=== PATIENT | male | born 1960 | race Caucasian/White ===

== ENCOUNTER 2016-09-09 15:10 | Inpatient (IN) | payer BC ==
[~2016-09-09] VITALS: Ht 180.3 cm; Wt 106.8 kg
--- NOTE | ~2016-09-09 | HEMODYNAMI ---
PATIENT:SHEY MOISE JR MEDICAL RECORD: [id number] : 56 LOCATION:[facility] D.[address] [place] CL[facility]ICT# [id number] ADMISSION DATE: 09/09/16 Generatedon:09/10/20169:18 Patient name: SHEY MOISE Patient #: [id number] : 1960 Date of study: 09/10/2016 Page: Of Hemodynamic Procedure Report Patient Data Patient Demographics Procedure consent was obtained First Name: SHEY Gender: Male Last Name: SUMA Suffix: Jr Gil Initial: Aldo : 1960 Patient #: [id number] Age: 56 year(s) Race: Unknown SSN: [id number] Additional ID: [id number] Contact details Address: [address] [place] [address] [facility] State: [place] City: [place] Zip code: [address] Past Medical History Allergies: No known allergies Admission Admission Data Admission Date: 09/09/2016 Admission Time: 17:41 Arrival Date: 09/03/2016 Arrival Time: 0:00 Admit Source: Other Room #: D.2119 Weight (lbs.): 229.28 Weight (kg.): 104 Lab Results Lab Result Date: 09/10/2016 Lab Result Time: 0:00 Biochemistry Name Units Result Min Max BUN mg/dl 11 --(-*--)-- 7 18 Creatinine mg/dl 0.9 --(-*--)-- 0.6 1.3 CBC Name Units Result Min Max Hemoglobin g/dl 46.3 --(----)-* 13.5 17.5 Procedure Procedure Types Cath Procedure Diagnostic Procedure [facility] w/Coronaries PCI Procedure Coronary Stent Initial Miscellaneous Procedures Moderate Sedation up to 15 minutes Procedure Description Procedure Date Procedure Date: 09/10/2016 Procedure Start Time: 8:51 Procedure End Time: 9:13 Procedure Staff Name Function Mal Maki MD Performing Physician Brandy De La Rosa RT Scrub Emily Mujica RN Nurse Cherri Raza RT Monitor Procedure Data Cath Procedure Fluoroscopy Diagnostic fluoroscopy Total fluoroscopy Time: 8.8 time: 8.8 min min Diagnostic fluoroscopy Total fluoroscopy dose: 876 dose: 876 mGy mGy Contrast Material Contrast Material Type Amount (ml) Isovue 300 117 Entry Location Entry Primary Successful Side Size Upsize Upsize Entry Closure Succes sful Closure Location (Fr) 1 (Fr) 2 (Fr) Remarks Device Remarks Femoral Right 5 Fr 7 Fr Exoseal artery Short Estimated blood loss: 10 ml Diagnostic catheters Device Type Used For End Catheter Placement Cordis 5Fr Pigtail LV Angiography Catheter (MP) Cordis 5Fr JL 4.0 Left Coronary Catheter (MP) Angiography Cordis 5Fr 3DRC Catheter Procedure (MP) Procedure Complications No complications Procedure Medications Medication Administration Route Dosage Oxygen NC 2 l/min Lidocaine 2% added to field 20 Heparin Flush Bag added to field 2 bags (1000units/500ml NS) 0.9% NaCl I.V. 100 ml/hr Benadryl I.V. 50 mg Versed I.V. 1 mg Fentanyl I.V. 50 mcg Versed I.V. 1 mg Fentanyl I.V. 50 mcg Versed I.V. 1 mg Fentanyl I.V. 50 mcg Versed I.V. 1 mg Fentanyl I.V. 50 mcg Heparin Bolus I.V. 7000 units Integrilin (Bolus I.V. 9.5 ml 2mg/ml) Versed I.V. 1 mg Nitroglycerin IC/IA I.C. 200 mcg Nitroglycerin IC/IA I.C. 200 mcg Fentanyl I.V. 50 mcg Plavix P.O. 75 mg Hemodynamics Rest HGB: 46.3 (g/dl) Heart Rate: 64 (bpm) Snapshots Pre Cath Intra NCS Post Cath Vital Signs Time Heart Resp SPO2 NIBP (mmHg) Rhythm Pain Sedation Rate (ipm) (%) Status Level (bpm) 8:33:21 65 17 100 140/81(108) NSR 0 (11) 10(A) , No pain 8:37:50 64 14 99 132/85(104) NSR 0 (11) 10(A) , No pain 8:42:12 69 19 95 139/85(113) NSR 0 (11) 10(A) , No pain 8:46:38 66 17 94 130/81(117) NSR 0 (11) 10(A) , No pain 8:51:02 67 17 94 130/76(104) NSR 0 (11) 9(A) , No pain 8:55:22 72 17 94 125/71(98) NSR 0 (11) 9(A) , No pain 8:59:41 71 17 94 124/79(95) NSR 0 (11) 9(A) , No pain 9:03:59 78 15 94 133/84(106) NSR 0 (11) 9(A) , No pain 9:08:21 80 17 95 139/85(116) NSR 0 (11) 9(A) , No pain 9:12:49 77 17 93 125/74(101) NSR 0 (11) 9(A) , No pain 9:17:23 73 17 95 132/81(101) NSR 0 (11) 10(A) , No pain Medications Time Medication Route Dose Verified Delivered Reason Not es Effectiveness by by 8:33:18 Oxygen NC 2 l/min Malghassan Diaz used for Shanthi Mujica RN procedure 8:33:25 Lidocaine 2% added 20ml vial Mal Resendez for local to Shanthi Maki MD anesthetic field 8:33:31 Heparin Flush added 2 bags Mal Resendez used for Bag to Shanthi Maki MD procedure (1000units/500ml field NS) 8:33:40 0.9% NaCl I.V. 100 ml/hr Mal Diaz Per physician Shanthi Mujica RN 8:33:52 Benadryl I.V. 50 mg Mal Diaz used for giv en Shanthi Mujica RN procedure after iv start. could not be given on floor due to non patent iv 8:38:41 Versed I.V. 1 mg Mal Talleyie for sedation Shanthi Mujica RN 8:38:48 Fentanyl I.V. 50 mcg Mal Talleyie for sedation Shanthi Mujica RN 8:43:56 Versed I.V. 1 mg Mal Buffie for sedation Shanthi Mujica RN 8:43:59 Fentanyl I.V. 50 mcg Mal Talleyie for sedation Shanthi Mujica RN 8:51:01 Versed I.V. 1 mg Mal Talleyie for sedation Shanthi Mujica RN 8:51:06 Fentanyl I.V. 50 mcg Mal Buffie for sedation Shanthi Mujica RN 8:54:58 Versed I.V. 1 mg Mal Diaz for sedation Shanthi Mujica RN 8:55:02 Fentanyl I.V. 50 mcg Mal Diaz for sedation Shanthi Mujica RN 8:57:10 Heparin Bolus I.V. 7000units Mal Diaz for colt ified Shanthi Mujica RN anticoagulation with dr maki 8:59:27 Integrilin I.V. 9.5 ml Mal Diaz for was dwayne (Bolus 2mg/ml) Shanthi Mujica RN antiplatelet 0.5 ml therapy from vial 9:07:11 Versed I.V. 1 mg Mal Diaz for sedation Shanthi Mujica RN 9:07:19 Fentanyl I.V. 50 mcg Mal Diaz for sedation Shanthi Mujica RN 9:08:44 Nitroglycerin I.C. 200 mcg Mal Resendez for IC/IA Shanthi Maki MD vasodilation 9:09:37 Nitroglycerin I.C. 200 mcg Mal Resendez for IC/IA Shanthi Mkai MD vasodilation 9:15:54 Plavix P.O. 75 mg Mal Diaz for Shanthi Mujica RN antiplatelet therapy Procedure Log Time Note 8:05:21 Arrival Date: 09/03/2016 12:00:00 AM 8:06:01 Lab Result : BUN 11 mg/dl 8:06:01 Lab Result : Hemoglobin 46.3 g/dl 8:06:01 Lab Result : Creatinine 0.9 mg/dl 8:06:10 Diagnostic Cath Status : Elective 8:06:32 Emily Mujica RN sent for patient. Start room use. 8:06:33 Time tracking: Regular hours 8:06:38 Plan of Care:Hemodynamics will remain stable., Cardiac rhythm will remain stable., Comfort level will be maintained., Respiratory function will remain adequate., Patient/ family verbilizes understanding of procedure., Procedure tolerated without complication., Recovers from procedure without complications.. 8:22:34 Patient received from Med II to CCL 3 Alert and oriented. Tansferred to table in Supine position. 8:22:36 Warm blankets applied, and phuong hugger turned on for patient comfort. 8:22:36 Correct patient and procedure confirmed by team. 8:22:39 Signed procedure consent form obtained from patient. 8:22:39 ECG and BP/O2 sat monitors applied to patient. 8:23:16 IV started by Emily Mujica RN inleft hand with a 20 gauge IV catheter with 0.9% NaCl at KVO. 8:31:52 Baseline sample Acquired. 8:31:52 Vital chart was started 8:31:57 Rhythm: sinus rhythm 8:31:58 Full Disclosure recording started 8:32:03 H&P Date Dictated: 09/10/2016 Within 30 days and on chart.. 8:32:05 Pre-procedure instructions explained to patient. 8:32:06 Pre-op teaching completed and patient verbalized understanding. 8:32:14 Family in patients room. 8:32:17 Patient NPO since Midnight. 8:32:24 Patient allergic to No known allergies 8:32:27 Is the patient allergic to Iodine/contrast media? No. 8:32:33 Patient diabetic? No. 8:32:38 Snore? Yes 8:32:39 Sleep apnea? No 8:32:46 Dentures? Yes tight 8:32:56 Patient pain scale 0/10 ?. 8:33:07 Lab results completed and on chart. 8:33:11 Right groin area was prepped with chlora-prep and draped in sterile fashion 8:33:13 Alarms reviewed by R. N. 8:33:14 Sharps counted by scrub and verified by R.N. 8:33:16 Physician paged 8:33:18 Oxygen 2 l/min NC was administered by Emily Mujica RN; used for procedure; 8:33:25 Lidocaine 2% 20ml vial added to field was administered by Mal Maki MD; for local anesthetic; 8:33:31 Heparin Flush Bag (1000units/500ml NS) 2 bags added to field was administered by Mal Maki MD; used for procedure; 8:33:40 0.9% NaCl 100 ml/hr I.V. was administered by Emily Mujica RN; Per physician; 8:33:52 Benadryl 50 mg I.V. was administered by Emily Mujica RN; used for procedure; given after iv start. could not be given on floor due to non patent iv 8:34:07 Use device set Femoral Dx 8:34:08 Acist Syringe opened to sterile field. 8:34:09 Bag Decanter opened to sterile field. 8:34:09 Medline Cath Pack opened to sterile field. 8:34:10 Terumo 5Fr Gratiot Sheath opened to sterile field. 8:34:10 St Medardo 260cm J .035 wire opened to sterile field. 8:34:11 Acist Hand Control opened to sterile field. 8:34:12 Acist Manifold opened to sterile field. 8:34:12 Diagnostic Infinity 5Fr Multipack catheter opened to sterile field. 8:34:13 Tegaderm 4 x 4 opened to sterile field. 8:37:18 Physician arrived 8:37:19 --------ALL STOP TIME OUT------ 8:37:20 Final Timeout: patient, procedure, and site verified with staff and physician. All members of the team are in agreement. 8:37:22 Right groin site verified by team. 8:37:27 Sedation plan: IV Moderate Sedation Versed, Fentanyl 8:38:41 Versed 1 mg I.V. was administered by Emily Mujica RN; for sedation; 8:38:48 Fentanyl 50 mcg I.V. was administered by Emily Mujica RN; for sedation; 8:43:56 Versed 1 mg I.V. was administered by Emily Mujica RN; for sedation; 8:43:59 Fentanyl 50 mcg I.V. was administered by Emily Mujica RN; for sedation; 8:44:04 Patient Weight : 104 kg 8:44:07 Admit Source: Other 8:51:01 Versed 1 mg I.V. was administered by Emily Mujica RN; for sedation; 8:51:01 Is patient on blood thinner?Yes 8:51:06 Fentanyl 50 mcg I.V. was administered by Emily Mujica RN; for sedation; 8:51:07 ACC The patient was administered the following blood thiners within the last 24 hours: ACCPlavix, ACCLovenox 8:51:14 Procedure started. 8:51:20 Local anesthetic to right femoral artery with Lidocaine 2% by Mal Maki MD.INITIAL ACCESS ONLY 8:51:54 A 5 Fr sheath was inserted into the Right Femoral artery 8:52:28 A Cordis 5Fr Pigtail Catheter (MP) was advanced over the wire and used for LV Angiography. 8:52:36 LV gram done using WELSH 8:53:09 EF : 55 % 8:53:10 Catheter removed. 8:53:19 A Cordis 5Fr JL 4.0 Catheter (MP) was advanced over the wire and used for Left Coronary Angiography. 8:53:22 LCA angiography performed. 8:54:20 Catheter removed. 8:54:33 A Cordis 5Fr 3DRC Catheter (MP) was advanced over the wire and used for Procedure. 8:54:39 RCA angiography performed. 8:54:58 Versed 1 mg I.V. was administered by Emily Mujica RN; for sedation; 8:55:02 Fentanyl 50 mcg I.V. was administered by Emily Mujica RN; for sedation; 8:55:15 Catheter removed. 8:55:18 Merit BasixCompak Inflation Kit opened to sterile field. 8:56:46 Sheath upsized to a 7 Fr Short. 8:56:56 Imonomy Interactive Choice PT Extra Support J 300cm .014 gu opened to sterile field. 8:57:10 Heparin Bolus 7000units I.V. was administered by Emily Mujica RN; for anticoagulation; verified with dr maki 8:57:52 Terumo 7Fr Gratiot Sheath opened to sterile field. 8:58:36 7 Fr HS11 guide catheter was inserted over the wire 8:58:56 Medtronic Launcher 7Fr HS II guide catheter opened to sterile field. 8:59:04 Choice pt wire advanced. 8:59:07 Wire advanced across lesion. 8:59:27 Integrilin (Bolus 2mg/ml) 9.5 ml I.V. was administered by Emily Mujica RN; for antiplatelet therapy; wasted 0.5 ml from vial 9:00:32 Kemah Lozo Choice PT Extra Support J 300cm .014 gu opened to sterile field. 9:01:04 wire was exchanged because it was contaminated 9:01:31 Inflation number: 1 A Kemah Sci Slope 3.5 X 20 balloon was prepped and advanced across the Mid RCA, then inflated to 9 WESLEY for 0:10 (min:sec). 9:02:02 Multiple inflations throughout RCA from 9-11 ATMs 9:02:43 Balloon removed over the wire. 9:04:52 Inflation Number: 1 A Medtronic Resolute 3.5 X 26 stent was prepped and advanced across the Dist RCA. The stent was deployed at 13 WESLEY for 0:00 (min:sec). 9:06:36 Inflation Number: 1 A Medtronic Resolute 3.5 X 26 stent was prepped and advanced across the Dist RCA1. The stent was deployed at 17 WESLEY for 0:10 (min:sec). 9:06:45 Inflation number: 2 The stent balloon was then re-inflated across the Dist RCA1 to 21 WESLEY for 0:10 (min:sec). 9:07:11 Versed 1 mg I.V. was administered by Emily Mujica RN; for sedation; 9:07:19 Fentanyl 50 mcg I.V. was administered by Emily Mujica RN; for sedation; 9:08:44 Nitroglycerin IC/IA 200 mcg I.C. was administered by Mal Maki MD; for vasodilation; 9:09:17 Stent catheter was removed intact over wire. 9:09:21 Wire removed. 9:09:37 Nitroglycerin IC/IA 200 mcg I.C. was administered by Mal Maki MD; for vasodilation; 9:10:30 Guide catheter removed. 9:10:39 Cordis 7Fr Exoseal opened to sterile field. 9:10:52 Sheath removed intact; hemostasis achieved with Exoseal to the Right Femoral artery. 9:10:56 Procedure ended.(Physican Out) 9:11:10 Fluoroscopy time 08.80 minutes. 9:11:24 Fluoroscopy dose: 876 mGy 9:11:24 Flurop Dose total: 876 9:11:29 Contrast amount:Isovue 300 117ml. 9:11:31 Sharps counted by scrub and verified by R.N. 9:11:36 Insertion/operative site no bleeding no hematoma. 9:11:42 Post-op/insertion site Right Femoral artery dressed using a 4 x 4 and Tegaderm. 9:11:52 Post right femoral artery:stable 9:12:00 Post-procedure physical assessment completed. ASA score P 2 - A patient with mild systemic disease as per Mal Maki MD. 9:12:06 Post procedure rhythm: unchanged. 9:12:10 Estimated blood loss: 10 ml 9:12:13 Post procedure instruction explained to patient.Patient verbalizes understanding. 9:12:25 Procedure type changed to Cath procedure, Diagnostic procedure, LHC, LHC w/Coronaries, PCI procedure, Coronary Stent Initial, Miscellaneous Procedures, Moderate Sedation up to 15 minutes 9:12:27 Procedure and supply charges have been captured, reviewed, submitted and are correct. 9:13:00 Procedure Complication : No complications 9:13:08 Vital chart was stopped 9:13:09 See physician's report for complete and final results. 9:13:12 Report given to [facility]. 9:13:16 Patient transfered to [facility] with Bed. 9:13:20 Procedure ended. 9:13:20 Full Disclosure recording stopped 9:15:54 Plavix 75 mg P.O. was administered by Emily Mujica RN; for antiplatelet therapy; Intervention Summary Intervention Notes Time ActionType Lesion and Equipment Action# Pressure Duration Attributes Used 9:01:31 Inflate Mid RCA Kemah 1 9 00:10 balloon Sci Slope 3.5 X 20 balloon 9:04:52 Place stent Dist RCA Medtronic 1 13 00:00 Resolute 3.5 X 26 stent 9:06:36 Place stent Dist RCA1 Medtronic 1 17 00:10 Resolute 3.5 X 26 stent 9:06:45 Reinflate Dist RCA1 Medtronic 2 21 00:10 stent Resolute balloon 3.5 X 26 stent Device Usage Item Name Manufacture Quantity Catalog Number Hospital Part Current Mini mal Lot# / Charge Number Stock Stock Serial# Code Acist Acist 1 [id number] 016368 557202 023677 20 Syringe Medical Systems Inc Bag Microtek 1 2002S 544801 47843 014470 5 Elco Inc. Medline Cardinal 1 [id number] 973857 64720 793455 5 Cath Pack Health Terumo 5Fr Terumo 1 [id number] 434824 014607 679736 [address] St Medardo 1 [id number] 009587 888346 632805 30 260cm J .035 wire Acist Hand Acist 1 95767 627978 154616 662731 5 Control Medical Systems Inc Acist Acist 1 29214 386633 269514 830705 5 Manifold Medical Systems Inc Diagnostic Cardinal 1 [id number] 800221 71389 177229 30 Infinity Piqniq 5Fr Multipack catheter Tegaderm 4 3M 1 [id number] 973319 245294 476251 5 x 4 Cordis 5Fr Cardinal 1 [id number] 5 Pigtail Health Catheter (MP) Cordis 5Fr Cardinal 1 082921 5 JL 4.0 Health Catheter (MP) Cordis 5Fr Cardinal 1 573364 5 3DRC Health Catheter (MP) [facility] Merit 1 [id number] 885698 184206 644300 15 BasixCompak Medical Inflation Kit Kemah Sci Kemah 2 [id number] 269431 950764 175296 5 [id number] Choice PT Scientific Extra Support J 300cm .014 gu Terumo 7Fr Terumo 1 [id number] 272943 237214 880699 5 Gratiot Sheath Medtronic Medtronic 1 [id number] 596456 455901 0 Launcher 7Fr HS II guide catheter Kemah Sci Kemah 1 [id number] 199315 187576 738208 1 [id number] Enertec Systems 3.5 X 20 balloon Medtronic Medtronic 2 [id number] 142843 887535 7 [id number] Resolute [id number] 3.5 X 26 stent Cordis 7Fr Cardinal 1 [id number] 836366 377092 155254 5 Pocket Change Signature Audit [place] Stage Time Signature Unsigned Intra-Procedure 09/10/2016 Cherri Raza 9:18:41 AM RT(R) Signatures Monitor : Cherri Raza Signature : RT Date : Time : [id number] [place] [address]
--- NOTE | ~2016-09-09 | HEMODYNAMI ---
PATIENT:SHEY MOISE JR MEDICAL RECORD: [id number] : 56 [id number] ADMISSION DATE: 09/10/16 Generatedon:09/11/20169:21 Patient name: SHEY MOISE Patient #: [id number] : 1960 Date of study: 09/11/2016 Page: Of Hemodynamic Procedure Report Patient Data Patient Demographics Procedure consent was obtained First Name: SHEY Gender: Male Last Name: SUMA Suffix: Jr Gil Initial: Aldo : 1960 Patient #: [id number] Age: 56 year(s) Race: SSN: [id number] Additional ID: [id number] Contact details Address: [address] [place] [address] [facility] State: [place] City: [place] Zip code: [address] Past Medical History Allergies: No known allergies Admission Admission Data Admission Date: 09/10/2016 Admission Time: 16:06 Arrival Date: 09/03/2016 Arrival Time: 16:06 Admit Source: Other Insurance Payor: Private Room #: D.[id number] health insurance Weight (lbs.): 229.28 Weight (kg.): 104 Lab Results Lab Result Date: 09/11/2016 Lab Result Time: 0:00 Biochemistry Name Units Result Min Max BUN mg/dl 11 --(-*--)-- 7 18 Creatinine mg/dl 0.9 --(-*--)-- 0.6 1.3 CBC Name Units Result Min Max Hemoglobin g/dl 15.9 --(--*-)-- 13.5 17.5 Procedure Procedure Types Cath Procedure PCI Procedure Coronary Stent Initial Miscellaneous Procedures Moderate Sedation up to 15 minutes Procedure Description Procedure Date Procedure Date: 09/11/2016 Procedure Start Time: 9:08 Procedure End Time: 9:16 Procedure Staff Name Function Mal Maki MD Performing Physician Cherri Raza RT Scrub Emily Mujica RN Nurse Brandy De La Rosa RT Monitor Indication Angina Procedure Data Cath Procedure Fluoroscopy Diagnostic fluoroscopy Total fluoroscopy Time: 1.7 time: 1.7 min min Diagnostic fluoroscopy Total fluoroscopy dose: dose: 164.49 mGy 164.49 mGy Contrast Material Contrast Material Type Amount (ml) Isovue 370 36 Entry Location Entry Primary Successful Side Size Upsize Upsize Entry Closure Succes sful Closure Location (Fr) 1 (Fr) 2 (Fr) Remarks Device Remarks Femoral Right 6 Fr Exoseal artery Short Estimated blood loss: 5 ml Procedure Complications No complications Procedure Medications Medication Administration Route Dosage Oxygen NC 2 l/min Lidocaine 2% added to field 20 Heparin Flush Bag added to field 2 bags (1000units/500ml NS) 0.9% NaCl I.V. 100 ml/hr Versed I.V. 2 mg Fentanyl I.V. 100 mcg Heparin Bolus I.V. 4000 units Versed I.V. 2 mg Versed I.V. 2 mg Versed I.V. 1 mg Fentanyl I.V. 50 mcg Hemodynamics Rest HGB: 15.9 (g/dl) Heart Rate: 71 (bpm) Snapshots Pre Cath Intra NCS Post Cath Vital Signs Time Heart Resp SPO2 NIBP (mmHg) Rhythm Pain Sedation Rate (ipm) (%) Status Level (bpm) 8:56:23 66 16 98 140/83(113) NSR 0 (11) 10(A) , No pain 9:00:47 71 19 94 131/73(108) NSR 0 (11) 10(A) , No pain 9:05:09 67 16 96 122/83(103) NSR 0 (11) 10(A) , No pain 9:09:30 69 15 95 126/79(102) NSR 0 (11) 9(A) , No pain 9:13:52 70 17 95 132/82(124) NSR 0 (11) 9(A) , No pain 9:21:02 75 15 95 132/95(108) NSR 0 (11) 10(A) , No pain Medications Time Medication Route Dose Verified Delivered Reason Notes Effectiveness by by 8:59:51 Oxygen NC 2 Mal Diaz used for l/min Shanthi Mujica plate former 8:59:57 Lidocaine 2% added 20ml Mal Resendez for local to vial Shanthi Maki MD anesthetic field 9:00:03 Heparin Flush added 2 Mal Mal used for Bag to bags Shanthi Maki MD procedure (1000units/500ml field NS) 9:00:13 0.9% NaCl I.V. 100 Mal Buffie Per physician ml/hr Shanthi Mujica RN 9:04:49 Versed I.V. 2 mg Mal Buffie for sedation Shanthi Mujica RN 9:05:00 Fentanyl I.V. 100 Mal Buffie for sedation mcg Shanthi Mujica RN 9:08:02 Versed I.V. 2 mg Mal Buffie for sedation Shanthi Mujica RN 9:08:52 Versed I.V. 2 mg Mal Buffie for sedation Shanthi Mujica RN 9:10:36 Heparin Bolus I.V. 4000 Mal Buffie for verifie d units Shanthi Mujica RN anticoagulation with dr maki 9:13:30 Versed I.V. 1 mg Mal Buffie for sedation Shanthi Mujica RN 9:13:37 Fentanyl I.V. 50 Mal Buffie for sedation mcg Shanthi Mujica RN Procedure Log Time Note 8:30:58 Cherri Raza RT(R) sent for patient. Start room use. 8:39:20 Informed consent obtained and on chart 8:40:07 Insurance Payor : Private health insurance 8:40:30 Diagnostic Cath Status : Elective 8:40:47 Indication : Angina 8:41:04 Time tracking: Regular hours 8:41:08 Plan of Care:Hemodynamics will remain stable., Cardiac rhythm will remain stable., Comfort level will be maintained., Respiratory function will remain adequate., Patient/ family verbilizes understanding of procedure., Procedure tolerated without complication., Recovers from procedure without complications.. 8:42:09 Lab Result : Hemoglobin 15.9 g/dl 8:42:09 Lab Result : Creatinine 0.9 mg/dl 8:42:09 Lab Result : BUN 11 mg/dl 8:52:40 Patient received from Med II to CCL 3 Alert and oriented. Tansferred to table in Supine position. 8:52:41 Warm blankets applied, and phuong hugger turned on for patient comfort. 8:52:42 Correct patient and procedure confirmed by team. 8:52:52 H&P Date Dictated: 09/09/2016 Within 30 days and on chart.. 8:52:54 Pre-procedure instructions explained to patient. 8:52:56 Family in patients room. 8:52:59 Patient NPO since Midnight. 8:53:08 Patient allergic to No known allergies 8:53:12 Is the patient allergic to Iodine/contrast media? No. 8:53:14 Is patient on blood thinner?Yes 8:53:20 ACC The patient was administered the following blood thiners within the last 24 hours: ACCPlavix 8:53:41 Patient diabetic? No. 8:53:44 Snore? Yes 8:53:53 Sleep apnea? No 8:53:56 Deviated septum? No 8:54:03 Opens mouth fully? Yes 8:54:04 Sticks out tongue? Yes 8:54:13 Dentures? Yes tight 8:54:21 Patient pain scale 0/10 ?. 8:54:30 IV patent on arrival in left hand with 0.9% NaCl at [facility]. 8:54:40 Lab results completed and on chart. 8:54:46 Left groin area was prepped with chlora-prep and draped in sterile fashion 8:54:48 Alarms reviewed by R. N. 8:54:49 Sharps counted by scrub and verified by R.N. 8:54:49 Physician paged 8:54:55 ECG and BP/O2 sat monitors applied to patient. 8:54:56 Vital chart was started 8:54:58 Baseline sample Acquired. 8:55:02 Rhythm: sinus rhythm 8:55:03 Full Disclosure recording started 8:59:51 Oxygen 2 l/min NC was administered by Emily Mujica RN; used for procedure; 8:59:57 Lidocaine 2% 20ml vial added to field was administered by Mal Maki MD; for local anesthetic; 9:00:03 Heparin Flush Bag (1000units/500ml NS) 2 bags added to field was administered by Mal Maki MD; used for procedure; 9:00:13 0.9% NaCl 100 ml/hr I.V. was administered by Emily Mujica RN; Per physician; 9:03:20 Physician arrived 9:03:21 --------ALL STOP TIME OUT------ 9:03:21 Final Timeout: patient, procedure, and site verified with staff and physician. All members of the team are in agreement. 9:03:23 Right groin site verified by team. 9:03:25 Physical assessment completed. ASA score P 2 - A patient with mild systemic disease as per Mal Maki MD. 9:03:29 Sedation plan: IV Moderate Sedation Versed, Fentanyl 9:04:49 Versed 2 mg I.V. was administered by Emily Mujica RN; for sedation; 9:05:00 Fentanyl 100 mcg I.V. was administered by Emily Mujica RN; for sedation; 9:05:27 Use device set Femoral PCI 9:05:28 Acist Syringe opened to sterile field. 9:05:29 Acist Hand Control opened to sterile field. 9:05:29 Bag Decanter opened to sterile field. 9:05:29 Medline Cath Pack opened to sterile field. 9:05:30 Terumo 6Fr Reese Sheath opened to sterile field. 9:05:30 St Medardo 260cm J .035 wire opened to sterile field. 9:05:30 Merit BasixCompak Inflation Kit opened to sterile field. 9:05:31 Acist Manifold opened to sterile field. 9:05:31 Tegaderm 4 x 4 opened to sterile field. 9:08:02 Versed 2 mg I.V. was administered by Emily Mujica RN; for sedation; 9:08:23 Procedure started. 9:08:29 Local anesthetic to right femoral artery with Lidocaine 2% by Mal Maki MD.INITIAL ACCESS ONLY 9:08:37 A 6 Fr Short sheath was inserted into the Right Femoral artery 9:08:52 Versed 2 mg I.V. was administered by Emily Mujica RN; for sedation; 9:09:17 Cordis 6FR XBLAD 3.5 guide catheter opened to sterile field. 9:09:18 Rivera Whisper J 300cm 0.014 guide wire opened to sterile field. 9:09:33 6 Fr xblad 3.5 guide catheter was inserted over the wire 9:09:56 whisper wire advanced. 9:10:36 Heparin Bolus 4000 units I.V. was administered by Emily Mujica RN; for anticoagulation; verified with dr maki 9:11:19 Wire advanced across lesion. 9:13:30 Versed 1 mg I.V. was administered by Emily Mujica RN; for sedation; 9:13:31 Inflation Number: 1 A Medtronic Resolute 3.5 X 18 stent was prepped and advanced across the Prox LAD. The stent was deployed at 19 [place] for 0:10 (min:sec). 9:13:37 Fentanyl 50 mcg I.V. was administered by Emily Mujica RN; for sedation; 9:15:34 Stent catheter was removed intact over wire. 9:15:35 Wire removed. 9:15:35 Guide catheter removed. 9:15:42 Cordis 6Fr Exoseal opened to sterile field. 9:15:53 Sheath removed intact; hemostasis achieved with Exoseal to the Right Femoral artery. 9:15:55 Procedure ended.(Physican Out) 9:16:04 Fluoroscopy time 01.70 minutes. 9:16:10 Fluoroscopy dose: 164.49 mGy 9:16:10 Flurop Dose total: 164.49 9:16:14 Contrast amount:Isovue 370 36ml. 9:16:15 Sharps counted by scrub and verified by R.N. 9:16:17 Insertion/operative site no bleeding no hematoma. 9:16:19 Post-op/insertion site Right Femoral artery dressed using a 4 x 4 and Tegaderm. 9:16:22 Post right femoral artery:stable 9:16:23 Post Procedure Pulses reassessed and unchanged 9:16:26 Post procedure rhythm: unchanged. 9:16:29 Estimated blood loss: 5 ml 9:16:30 Post procedure instruction explained to patient.Patient verbalizes understanding. 9:16:30 Patient needs reinforcement of post procedure teaching. 9:16:40 Procedure type changed to Cath procedure, PCI procedure, Coronary Stent Initial, Miscellaneous Procedures, Moderate Sedation up to 15 minutes 9:16:41 Procedure and supply charges have been captured, reviewed, submitted and are correct. 9:16:46 Procedure Complication : No complications 9:16:48 Vital chart was stopped 9:16:48 See physician's report for complete and final results. 9:16:[address] [facility]. 9:16:[address] [facility] with Stretcher. 9:16:56 Procedure ended. 9:16:56 Full Disclosure recording stopped 9:17:07 ACC-PCI Only Patient was given prescriptions, or instructed by Mal Maki MD to start/continue the following medications upon discharge: Plavix 9:17:09 End room use (Document Last) 9:20:51 Arrival Date: 09/03/2016 4:06:00 PM Intervention Summary Intervention Notes Time ActionType Lesion and Equipment Action# Pressure Duration Attributes Used 9:13:31 Place stent Prox LAD Medtronic 1 19 00:10 Resolute 3.5 X 18 stent Device Usage Item Name Manufacture Quantity Catalog Hospital Part Current Minimal Lot# / Number Charge Number Stock Stock Serial# Code Acist Acist 1 62559 513391 090656 898209 20 Syringe Medical Systems Inc Acist Hand Acist 1 91798 678721 760540 614924 5 Control Medical Systems Inc Bag Microtek 1 2002S 929072 98444 051099 5 DecGolfsmith Medical Inc. Medline Cardinal 1 [id number] 944710 73379 896220 5 Cath Pack Health Terumo 6Fr Terumo 1 MBL107 086749 308918 882400 [address] St Medardo 1 048817 900551 414888 303117 30 260cm J .035 wire Merit Merit 1 [id number] 627138 579218 623096 15 BasixDataTorrentpak Medical Inflation Kit Acist Acist 1 29777 414561 408296 291387 5 Connected[employer] Medical Systems Inc Tegaderm 4 3M 1 1626W 371266 435587 332645 5 x 4 Cordis 6FR Cardinal 1 [id number] 116580 210999 602729 10 XBLAD 3.5 Health guide catheter Rivera Rivera 1 [id number] 470700 043041 583347 5 Whisper J Vascular 300cm 0.014 guide wire Medtronic Medtronic 1 [id number] 318981 741140 4 [id number] Resolute 3.5 X 18 stent Cordis 6Fr Cardinal 1 EX600 891089 899915 794163 10 Xinguodu Signature Audit [place] Stage Time Signature Unsigned Intra-Procedure 09/11/2016 Brandy De La Rosa 9:21:25 AM RT(R) Signatures Monitor : Brandy De La Rosa RT Signature : Date : Time : [facility] [address] [place] [address]
[2016-09-09 15:39] LABS: BASOPHILS 0.7 % (0.0-2.0); EOSINOPHILS 3.3 % (0-7); HEMATOCRIT 46.3 % (42.0-54.0); HEMOGLOBIN 15.9 g/dL (13.5-17.5); IMMATURE GRANULOCYTES 0.5 % (0-5); MCHC 34.3 g/dL (31.0-37.0); MCV 96.1 fL (80.0-100.0); MEAN PLATELET VOLUME 11.2 fL (7.4-10.4); MONOCYTES 5.9 % (2-11); NEUTROPHILS 52.6 % (40-80); PLATELET COUNT 215 10x3/uL (130-400); RBC 4.82 10x6/uL (4.20-6.10); WBC 11.4 10x3/uL (4.8-10.8)
[2016-09-09 16:29] LABS: ALKALINE PHOSPHATASE 55 U/L (46-116); ALT (SGPT) 28 U/L (10-68); BILIRUBIN - TOTAL 0.68 mg/dL (0.2-1.3); CARBON DIOXIDE 26.7 mmol/L (21.0-32.0); CHLORIDE - SERUM 102 mmol/L (98-107); GLUCOSE 136 mg/dL (74-106); POTASSIUM - SERUM 3.9 mmol/L (3.5-5.1); PROTEIN - SERUM 7.2 g/dL (6.4-8.2); UREA NITROGEN 11 mg/dL (7-18)
[2016-09-09 17:02] LABS: ALBUMIN 3.7 g/dL (3.4-5.0); CALC OSMOLALITY 276 mosm/kg (275-300); CALCIUM 9.1 mg/dL (8.5-10.1); CKMB 5.5 U/L (0.0-3.6); CREATINE KINASE 225 UL (21-232); CREATININE - SERUM 0.9 mg/dL (0.6-1.3); SODIUM 138 mmol/L (136-145); eGFR NON AFRICAN AMERICAN > 90 mL/min (90-120)
[2016-09-09 17:13] LABS: TROPONIN-I 0.108 ng/mL (0.000-0.060)
--- NOTE | 2016-09-09 19:00 | NUR ---
RECEIVED PT TO ROOM 2119 ALERT O X3. ASSESS AND HISTORY COMPLETE. MEDS REVIEWED AND UPDATED. VOICES NO NEEDS OR C/O AT THIS TIME. CALL LIGHT IN REACH. WILL CONT TO MONITOR.
[2016-09-09] MEDS ORDERED: COREG6.25 MG PO (21:57)
[2016-09-09 23:31] VITALS: Ht 180.3 cm; Wt 106.8 kg
[2016-09-10 00:11] VITALS: BP 141/63
--- NOTE | 2016-09-10 00:54 | NUR ---
FLOORS BUFFER AT BEDSIDE, NEEDS ADDRESSED AT THIS TIME. CALL LIGHT IN REACH. WILL CONT TO MONITOR.
[2016-09-10 04:00] VITALS: BP 125/73
[2016-09-10 07:58] VITALS: BP 114/68
--- NOTE | 2016-09-10 08:10 | NUR ---
LEAVING FOR CERTIFIED REGISTERED DENTAL ASSISTANT BY BED. WILL CONT. PLAN OF CARE.
--- NOTE | 2016-09-10 09:39 | NUR ---
BACK FROM NEWSPAPER REPORTER. VS WNL. RIGHT GROIN STABLE WITHOUT BLEEDING OR HEMATOMA NOTED. WILL MONITOR.
[2016-09-10 11:41] VITALS: BP 108/74
--- NOTE | 2016-09-10 13:19 | NUR ---
BED REST UP. GROIN STABLE.
--- NOTE | 2016-09-10 14:38 | HP ---
PATIENT: SHEY WAHL JR MEDICAL RECORD: [id number] ACCOUNT: [id number] LOCATION:[facility].2119 : 56 ADMISSION DATE: 09/09/16 HISTORY AND PHYSICAL EXAMINATION DIAGNOSES: 1. Non-Q-wave myocardial infarction. 2. Coronary artery disease. 3. Hypertension. HISTORY OF PRESENT ILLNESS: Mr. Wahl presents with anginal symptomatology times 2 weeks, has a positive troponin for a non-Q-wave myocardial infarction. He does have a history of coronary artery disease, PTCA stent approximately 5 years ago. His chest pain has been going on for 2 weeks in a progressive fashion. PHYSICAL EXAMINATION: GENERAL APPEARANCE: Well-nourished, well-developed, appears stated age. Level of distress, comfortable. PSYCHIATRIC: Mental status, alert, normal affect. Orientation, oriented to time, place and person. EYES: Lids and conjunctiva, noninjected. No discharge, no pallor. ENT: Lips, teeth, gums, normal dentition. Oropharynx, no cyanosis, no pallor. NECK: Carotid arteries, bilateral normal upstroke, no bruits, no thrills. JUGULAR VEINS: No jugular venous pressure or distention. CERVICAL LYMPH NODES: Nontender, nonenlarged. THYROID: Not enlarged. Nontender. No nodules. LUNGS: Respiratory effort, unlabored. CHEST: Normal curvature. No thoracic deformity. No chest wall tenderness. Percussion, resonant. Auscultation, clear. No wheezes, no rales, no rhonchi. CARDIOVASCULAR: Precordial exam, nondisplaced. No heaves or pericardial thrills. Rate and rhythm, regular. Heart sounds, normal S1, normal S2. No S3, no gallop, no rub. Systolic murmur, not heard. Diastolic murmur, not heard. EXTREMITIES: No cyanosis, no edema. Peripheral pulses, full and equal in all extremities, except as noted. No bruits appreciated. ABDOMEN: Soft, nondistended. Normal aorta. No bruit. Nontender. No masses. Liver, nontender, no hepatomegaly. Spleen, nontender, no splenomegaly. MUSCULOSKELETAL: No joint tenderness. No joint swelling. No erythema. NEUROLOGICAL: Normal gait, normal strength, normal tone. SKIN: Warm and dry. REVIEW OF SYSTEMS: The patient reports easy bruising but reports no swollen glands. The patient reports no fever, no night sweats, no significant weight gain, no significant weight loss. No significant exercise tolerance. The patient reports no dry eyes, no irritation, no vision change. Patient reports no difficulty hearing and no ear pain. Patient reports no frequent nose bleeds or nose and sinus problems. Patient reports on arm pain on exertion. No shortness of breath while lying down. No history of heart murmur. Patient reports no cough, no wheezing or coughing up blood. Patient reports no abdominal pain, no vomiting. Normal appetite. No diarrhea and not vomiting blood. No nausea and no constipation. Patient reports no incontinence. No difficulty urinating. No hematuria. No increased frequency. Patient reports no muscle aches. No weakness, no arthralgias, no back pain. No swelling of the extremities. Patient reports no abnormal mole, no jaundice, no rashes. Reports no loss of consciousness. No weakness and no numbness. No seizures, dizziness, HISTORY AND PHYSICAL [id number] SHEY WAHL JR or headaches. The patient reports no depression, no sleep disturbance, feeling safe in a relationship and no alcohol abuse. Patient reports on fatigue. Reports no runny nose or sinus pressure. No itching, no hives, and no frequent sneezing. OVERALL IMPRESSION: Chest pain and non-Q-wave myocardial infarction. We will proceed with coronary angiography. Further care depends upon findings of the angiography. TRANSINT:[id number] Voice Confirmation ID: [id number] DOCUMENT ID: [id number] TAYLER PASCAL MD at 1438 CC: [id number] DICTATION DATE: 09/10/16 0757 HOSPICE CLINICAL SUPERVISOR: 09/10/16 0839 [facility] [place] [id number] [place] [id number]
[2016-09-10 14:47] VITALS: BP 135/66
[2016-09-10 22:26] VITALS: BP 123/64
[2016-09-11 01:25] VITALS: BP 133/71
[2016-09-11 05:45] VITALS: BP 123/72
--- NOTE | 2016-09-11 05:51 | NUR ---
REMAINS NPO FOR AM PROCEDURE, AWAKE, ALERT, DENIES NEEDS AT THIS TIME. C/L IN REACH. CONTINUE TO MONITOR.
[2016-09-11 07:57] VITALS: BP 124/76
--- NOTE | 2016-09-11 08:43 | NUR ---
PRE-OPS GIVEN. TO ADMINISTRATIVE PROFESSIONAL BY BED.
--- NOTE | 2016-09-11 09:40 | NUR ---
BACK FROM TENT FINISHER. VS WNL. RIGHT GROIN STABLE WITHOUT BLEEDING OR HEMATOMA NOTED. WILL MONITOR.
[2016-09-11] MEDS ORDERED: PLAVIX75 MG PO (11:17)
[2016-09-11] MEDS ORDERED: ASPIRIN81 MG PO (11:18)
[2016-09-11] MEDS ORDERED: PRAVACHOL40 MG PO (11:19)
--- NOTE | 2016-09-11 12:11 | NUR ---
Patient Name: SHEY MOISE Admission Status: ER Accout number: [id number] Admission Date: 09-10-2016 : 1960 Admission Diagnosis: Attending: KAREEM Current LOS: 1 Anticipated DC Date: 09-11-2016 Planned Disposition: Home Primary Insurance: [employer] O Discharge Planning Comments: * Is the patient Alert and Oriented? Yes 0 * How many steps to enter\exit or inside your home? 12-O / 0-I 0 * PCP NONE - CM DISCUSSED [facility] INFORMATION, REFERRED TO INSURANCE [employer] FOR LIST OF COVERED PHYSICIANS 0 * Pharmacy [facility] 0 * Preadmission Environment Home with Family 0 * ADLs Independent 0 * Equipment None 0 * Other Equipment NO MEDICAL EQUIPMENT PROVIDER PREFERENCE 0 * List name and contact numbers for known caregivers / representatives who currently or will assist patient after discharge: JB MOISE, SPOUSE, 0 * Community resources currently utilized None 0 * Please name any agencies selected above. NONE 0 * Additional services required to return to the preadmission environment? No 0 * Can the patient safely return to the preadmission environment? Yes 0 * Has this patient been hospitalized within the prior 30 days at any hospital? No 0 CM MET WITH PT IN ROOM TO DISCUSS DISCHARGE PLANNING AND NEEDS. PT REPORTS LIVING AT HOME INDEPENDENTLY WITH SPOUSE. PT HAS NO MEDICAL EQUIPMENT AND NO OUTSIDE SERVICES ASSISTING IN THE HOME. CM DISCUSSED AVAILABILITY OF HOME HEALTH, REHAB SERVICES AND MEDICAL EQUIPMENT. PT / SPOUSE DENIES DISCHARGE NEEDS, SPOUSE REPORTS SHE WILL BE DRIVING PT HOME AT DISCHARGE TODAY. Quick Print Operator: Alexander Marsh
--- NOTE | 2016-09-11 13:46 | NUR ---
BED REST UP. RIGHT GROIN STABLE. IV AND TELEMETRY DCD. DC PLANS GIVEN. UNDERSTANDING VOICED. ESCORTED TO CAR BY W/C.
--- NOTE | 2016-09-12 08:41 | OP ---
PATIENT NAME: SHEY MOISE JR MEDICAL RECORD: [id number] :[birth year] LOCATION:D.[facility] D.2119 ADMISSION DATE:09/10/16 SURGEON: TAYLER PASCAL MD DATE OF OPERATION: 09/11/2016 PROCEDURES: 1. PTCA stent LAD. 2. Selective coronary angiography. INDICATIONS: Angina, non-Q-wave myocardial infarction and coronary artery disease. PROCEDURE IN DETAIL: After informed consent was obtained and after a detailed explanation of the risks, benefits as well as alternative therapies, the patient elected to proceed with angiogram and angioplasty. The right femoral area was prepped and draped in normal sterile fashion. The right femoral artery was cannulated via modified Seldinger technique with placement of a 6-Kenyan sheath. All catheters exchanged through this sheath. FINDINGS: The left anterior descending has a 95% to 99% stenosis in the proximal vessel. This was addressed with a 3.5 x 18-mm Resolute stent taken to 21 atmospheres. Result was 0% residual stenosis. OVERALL IMPRESSION: Successful percutaneous transluminal coronary angioplasty stent of the left anterior descending, going from 95% initial stenosis to 0% residual stenosis. TRANSINT:[id number] Voice Confirmation ID: [id number] DOCUMENT ID: [id number] TAYLER PASCAL MD at 0841 CC: [id number] DICTATION DATE: 09/11/16 09 WEBSITE/BLOG EDITOR: 09/11/16 1504 [place] 09/11/16 [place] [id number] [place] [id number]
--- NOTE | 2016-09-12 08:41 | DS ---
PATIENT:SHEY WAHL JR :56 MEDICAL RECORD: [id number] DISCHARGE SUMMARY ADMISSION DATE: 09/10/16 DISCHARGE DATE: 09/11/16 DISCHARGE DIAGNOSES: 1. Angina. 2. Coronary artery disease. 3. Percutaneous transluminal coronary angioplasty stent left anterior descending and right coronary artery this admission. 4. Hyperlipidemia. HOSPITAL COURSE: Mr. Wahl presents with non-Q-wave myocardial infarction symptomatology, found to have 3-vessel coronary artery disease, underwent successful PTCA stent of the LAD and RCA. He was discharged home with the addition of aspirin, Plavix, Pravachol to his medical regimen. We will follow up in 1 week for PTCA stent of the left circumflex. TRANSINT:[id number] Voice Confirmation ID: [id number] DOCUMENT ID: [id number] TAYLER PASCAL MD at 0841 CC: [id number] DICTATION DATE: 09/11/16 0919 MOLDER OPERATOR: 09/12/16 0057 DIS IN 09/11/16 [place] [id number] [place] [address]
== END 2016-09-11 13:47 | disposition home or self-care (01) | DRG 247 ==
LOC: D.ER 15:10 → OBSVTIME 17:41 → D.M2 17:41
PROVIDERS: Emergency Medicine; ADMIT Internal Medicine Interventional Cardiology
PROC: 4A023N7 Measurement of Cardiac Sampling and Pressure, Left Heart, Percutaneous Approach (ICD-10-PCS; 2016-09-11)
PROC: B2111ZZ Fluoroscopy of Multiple Coronary Arteries using Low Osmolar Contrast (ICD-10-PCS; 2016-09-11)
PROC: 027034Z Dilation of Coronary Artery, One Artery with Drug-eluting Intraluminal Device, Percutaneous Approach (ICD-10-PCS; principal; 2016-09-11 10:30)
DX: I21.4 Non-ST elevation (NSTEMI) myocardial infarction (principal); I25.119 Atherosclerotic heart disease of native coronary artery with unspecified angina pectoris; I10 Essential (primary) hypertension; E78.5 Hyperlipidemia, unspecified